=== PATIENT | female | born 1995 | race Caucasian/White ===

== ENCOUNTER 2019-08-13 22:24 | Emergency (ER) | payer BC, MEDICAID, SELFPAY ==
[~2019-08-13] VITALS: Ht 162.6 cm; Wt 83.5 kg
[2019-08-13 22:27] VITALS: Ht 162.6 cm; Wt 83.5 kg
[2019-08-14 01:00] LABS: BASOPHIL % 0.3 % (0-2); PLATELET COUNT 215 x10^3mcL (130-400); RED CELL DISTRIBUTION WIDTH 13.6 % (11.5-14.5)
[2019-08-14 01:10] LABS: CALCIUM 8.7 mg/dL (8.5-10.1); CARBON DIOXIDE 22.4 mmol/L (21-32); CHLORIDE SERUM 99 mmol/L (98-107); CREATININE SERUM 0.8 mg/dL (0.6-1.0); GFR1 > 60 mL/min; GLUCOSE SERUM 112 mg/dL (74-106); POTASSIUM SERUM 3.3 mmol/L (3.5-5.1); SODIUM SERUM 132 mmol/L (136-145)
[2019-08-14 03:24] VITALS: BP 112/70
== END 2019-08-14 03:24 | disposition home or self-care (01) ==
LOC: ED 22:24
PROVIDERS: Emergency Medicine
DX: U07.1 COVID-19 (principal); O98.511 Other viral diseases complicating pregnancy, first trimester; O99.511 Diseases of the respiratory system complicating pregnancy, first trimester; Z3A.09 9 weeks gestation of pregnancy
CPT/HCPCS: U0003-CS